=== PATIENT | female | born 1960 | race Caucasian/White ===

== ENCOUNTER 2017-07-17 00:30 | Emergency (ER) | payer SELFPAY ==
[2017-07-17 01:48] VITALS: BP 139/74
[2017-07-17] MEDS ORDERED: MOTRIN ONE (01:54)
[2017-07-17] MEDS ORDERED: MOTRIN PO ONE (01:58)
--- NOTE | 2017-07-17 02:32 | XRay Report ---
FINAL REPORT PROCEDURE: XR HAND BILAT 2V TECHNIQUE: LEFT hand radiographs, AP, lateral, and oblique views. CPT 45136-CC HISTORY: bilateral hand pain. Pts. hands started hurting at work after working in the cold. Hand pain feels like a "toothache" when walking home from work in the cold. Pt. states that had same hand pain a month ago as well with no known injury. COMPARISON: No prior studies are available for comparison. FINDINGS: Fracture (s) and/or Dislocation(s): None . Alignment: Normal . Joint space(s): Normal . Soft tissues: Normal . Bone mineralization: Normal . Foreign bodies: None . IMPRESSION: Normal Examination .
--- NOTE | 2017-07-17 03:28 | Emergency Department Report ---
ED Extremity Problem HPI - General Chief complaint: Extremity Injury, Upper Stated complaint: BILATERAL HAND PAIN Time Seen by Provider: 07/17/17 03:21 Source: patient Mode of arrival: Ambulatory Limitations: No Limitations - History of Present Illness Initial comments: 57-year-old female past medical history none presents with complaint of bilateral hand and fingertip pain. 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 Patient states that while at work today after exposure to cold she felt onset of pain in both of her hands and fingertips. States she may have had some slight bluish discoloration of fingertips which immediately resolved after warming her fingers. Patient states lasted for a few minutes. She denies any direct trauma to hands denies any loss of sensation. States the episode lasted for a few minutes. Denies fevers or chills. Denies any direct trauma hands. MD Complaint: extremity pain -: This afternoon Location: left, right History of Same: No Radiation: none Severity scale (0 -10): 6 Quality: aching Improves with: other (warming) - Related Data Previous Rx's Medication Instructions Recorded Last Taken Type Ibuprofen [Motrin] 600 mg PO Q8H PRN #30 tablet 07/17/17 Unknown Rx Allergies Allergy/AdvReac Type Severity Reaction Status Date / Time No Known Allergies Allergy Verified 07/17/17 01:55 ED Review of Systems ROS: Stated complaint: BILATERAL HAND PAIN Other details as noted in HPI Constitutional: denies: chills, fever Eyes: denies: eye pain, eye discharge, vision change ENT: denies: ear pain, throat pain Respiratory: denies: cough, shortness of breath, wheezing Cardiovascular: denies: chest pain, palpitations Endocrine: no symptoms reported Gastrointestinal: denies: abdominal pain, nausea, diarrhea Genitourinary: denies: urgency, dysuria, discharge Musculoskeletal: denies: back pain, joint swelling, arthralgia Skin: denies: rash, lesions Neurological: denies: headache, weakness, paresthesias Psychiatric: denies: anxiety, depression Hematological/Lymphatic: denies: easy bleeding, easy bruising ED Past Medical Hx - Past Medical History Previous Medical History?: No - Surgical History Additional Surgical History: X2. - Social History Smoking Status: Never Smoker Substance Use Type: None - Medications Home Medications: Home Medications Medication Instructions Recorded Confirmed Last Taken Type Ibuprofen [Motrin] 600 mg PO Q8H PRN #30 tablet 07/17/17 Unknown Rx ED Physical Exam - General Limitations: No Limitations General appearance: alert, in no apparent distress - Head Head exam: Present: atraumatic, normocephalic - Eye Eye exam: Present: normal appearance, PERRL, EOMI - ENT ENT exam: Present: mucous membranes moist - Neck Neck exam: Present: normal inspection - Respiratory Respiratory exam: Present: normal lung sounds bilaterally. Absent: respiratory distress - Cardiovascular Cardiovascular Exam: Present: regular rate, normal rhythm. Absent: systolic murmur, diastolic murmur, rubs, gallop - GI/Abdominal GI/Abdominal exam: Present: soft, normal bowel sounds - Extremities Exam Extremities exam: Present: normal inspection, full ROM (range of motion PIPs and MCPs DIPs fully intact all fingers, wrist flexion and extension intact bilaterally), normal capillary refill (distal capillary refill less than one second all fingers. Distal radial brachial and ulnar pulses strong to palpation bilaterally) - Back Exam Back exam: Present: normal inspection - Neurological Exam Neurological exam: Present: alert, oriented X3, CN II-XII intact, normal gait - Psychiatric Psychiatric exam: Present: normal affect, normal mood - Skin Skin exam: Present: warm, dry, intact, normal color. Absent: rash ED Course Vital Signs 07/17/17 01:39 Temperature 97.8 F Pulse Rate 64 Respiratory 18 Rate Blood Pressure 139/74 O2 Sat by Pulse 100 Oximetry ED Medical Decision Making - Medical Decision Making A/P: Raynauds phenomenon hands 1-patient feels significantly better with rewarming and NSAIDs, pain currently 0 out of 10 2-I educated patient on signs and symptoms of her nods and advised her to avoid cold triggers 3-follow-up with primary care doctor 4-bilateral hands range of motion all fingers intact at PIP and DIPs MCPs, capillary refill less than one second both hands, range of motion at wrist bilaterally intact. X-rays unremarkable. Sensation and proprioception intact both hands and fingers. Critical care attestation.: If time is entered above; I have spent that time in minutes in the direct care of this critically ill patient, excluding procedure time. ED Disposition Clinical Impression: Raynauds phenomenon Qualifiers: Raynaud?s-associated gangrene presence: without gangrene Qualified Code(s): I73.00 - Raynaud's syndrome without gangrene Disposition: TO HOME OR SELFCARE Is pt being admited?: No Does the pt Need Aspirin: No Condition: Stable Instructions: Raynaud Disease (ED) Prescriptions: Ibuprofen [Motrin] 600 mg PO Q8H PRN #30 tablet PRN Reason: Pain Referrals: AFUA GROVE MD [Primary Care Provider] - 3-5 Days [facility] [Outside] - 3-5 Days [facility] [Outside] - 3-5 Days TIARA REYNA MD [Staff Physician] - 3-5 Days Forms: Accompanied Note, Work/School Release Form(ED) Time of Disposition: 03:48
== END 2017-07-17 03:54 | disposition home or self-care (01) ==
LOC: ED 00:30
DX: I73.00 Raynaud's syndrome without gangrene (principal)
CPT/HCPCS: 99283

== ENCOUNTER 2017-07-29 06:15 | Emergency (ER) | payer SELFPAY ==
--- NOTE | 2017-07-29 11:39 | Emergency Department Report ---
- General Chief Complaint: Upper Respiratory Infection Stated Complaint: COLD SX Time Seen by Provider: 07/29/17 10:58 Source: patient Mode of arrival: Ambulatory Limitations: No Limitations - History of Present Illness Initial Comments: 57-year-old female past medical history none presents with complaint of one week of sore throat cough and runny nose. Patient denies chest pain palpitations shortness of breath or chest pain bodyaches dysuria hematuria increased urinary frequency abdominal pain or shortness of breath at rest. States she has had some sick contacts with similar symptoms lately. Patient states she has been in the hospital frequently this week to visit a sick family member. Patient denies being a smoker. Patient is awake alert and oriented 3 nontoxic-appearing fully lucid. States she has not been taking any medicines for her symptoms. States her throat is also slightly sore. Speaking in full sentences no trismus noted no drooling MD Complaint: cough, sore throat, nasal congestion Onset/Timin -: week(s) Severity: moderate Consistency: intermittent Improves With: nothing Context: sick contacts Associated Symptoms: rhinorrhea, nasal congestion, sore throat, cough - Related Data Previous Rx's Medication Instructions Recorded Last Taken Type Ibuprofen [Motrin] 600 mg PO Q8H PRN #30 tablet 07/17/17 Unknown Rx Albuterol Sulfate [Ventolin HFA] 2 puff IH Q4H PRN #1 hfa.aer.ad 07/29/17 Unknown Rx Azithromycin [Zithromax Z-MAYTE] 250 mg PO QDAY #1 pack 07/29/17 Unknown Rx Benzonatate [Tessalon Perles] 100 mg PO Q8HR PRN #30 capsule 07/29/17 Unknown Rx Dextromethorphan/Benzocaine 1 each PO Q4H PRN #1 box 07/29/17 Unknown Rx [Cepacol Sorethroat-Cough Carter] Phenylephrine/Dm/Acetaminop/GG 10 ml PO Q6H PRN #1 liquid 07/29/17 Unknown Rx [Mucinex Aseo-Qae-Yfrdtyuuhp Lq] Allergies Allergy/AdvReac Type Severity Reaction Status Date / Time No Known Allergies Allergy Verified 07/17/17 01:55 ED Review of Systems ROS: Stated complaint: COLD SX Other details as noted in HPI Constitutional: denies: chills, fever Eyes: denies: eye pain, eye discharge, vision change ENT: congestion. denies: ear pain, throat pain Respiratory: cough. denies: shortness of breath, wheezing Cardiovascular: denies: chest pain, palpitations Endocrine: no symptoms reported Gastrointestinal: denies: abdominal pain, nausea, diarrhea Genitourinary: denies: urgency, dysuria, discharge Musculoskeletal: denies: back pain, joint swelling, arthralgia Skin: denies: rash, lesions Neurological: denies: headache, weakness, paresthesias Psychiatric: denies: anxiety, depression Hematological/Lymphatic: denies: easy bleeding, easy bruising ED Past Medical Hx - Past Medical History Previous Medical History?: No - Surgical History Past Surgical History?: No Additional Surgical History: X2. - Social History Smoking Status: Former Smoker Substance Use Type: None - Medications Home Medications: Home Medications Medication Instructions Recorded Confirmed Last Taken Type Ibuprofen [Motrin] 600 mg PO Q8H PRN #30 tablet 07/17/17 Unknown Rx Albuterol Sulfate [Ventolin HFA] 2 puff IH Q4H PRN #1 hfa.aer.ad 07/29/17 Unknown Rx Azithromycin [Zithromax Z-MAYTE] 250 mg PO QDAY #1 pack 07/29/17 Unknown Rx Benzonatate [Tessalon Perles] 100 mg PO Q8HR PRN #30 capsule 07/29/17 Unknown Rx Dextromethorphan/Benzocaine 1 each PO Q4H PRN #1 box 07/29/17 Unknown Rx [Cepacol Sorethroat-Cough Carter] Phenylephrine/Dm/Acetaminop/GG 10 ml PO Q6H PRN #1 liquid 07/29/17 Unknown Rx [Mucinex Vial-Imr-Hrflifpwfs Lq] ED Physical Exam - General Limitations: No Limitations General appearance: alert, in no apparent distress - Head Head exam: Present: atraumatic, normocephalic - Eye Eye exam: Present: normal appearance, PERRL, EOMI - ENT ENT exam: Present: normal exam (no AUTOM[employer]S [employer]OR, no tonsillar exudates or tonsillar erythema, no clinical signs of otitis), mucous membranes moist - Neck Neck exam: Present: normal inspection - Respiratory Respiratory exam: Present: normal lung sounds bilaterally (slightly decreased breath sounds bilaterally no wheezing no rhonchi). Absent: respiratory distress - Cardiovascular Cardiovascular Exam: Present: regular rate, normal rhythm. Absent: systolic murmur, diastolic murmur, rubs, gallop - GI/Abdominal GI/Abdominal exam: Present: soft, normal bowel sounds - Extremities Exam Extremities exam: Present: normal inspection - Back Exam Back exam: Present: normal inspection - Neurological Exam Neurological exam: Present: alert, oriented X3 - Psychiatric Psychiatric exam: Present: normal affect, normal mood - Skin Skin exam: Present: warm, dry, intact, normal color. Absent: rash ED Course Vital Signs 07/29/17 07/29/17 06:53 11:56 Temperature 98.1 F Pulse Rate 72 Pulse Rate [ 79 Posterior Bilateral Throughout] Respiratory 16 Rate Respiratory 18 Rate [Posterior Bilateral Throughout] Blood Pressure 112/70 O2 Sat by Pulse 99 Oximetry ED Medical Decision Making - Medical Decision Making A/P: Acute bronchitis 1-symptomatic treatment 2-flu and strep swab is negative, chest x-ray unremarkable 3-as patient has had multiple sick contacts and has spent some time in a hospital setting this week visiting sick family members will cover her empirically with azithromycin 4-follow-up primary care doctor, vital signs stable before discharge Critical care attestation.: If time is entered above; I have spent that time in minutes in the direct care of this critically ill patient, excluding procedure time. ED Disposition Clinical Impression: Acute bronchitis Qualifiers: Bronchitis organism: unspecified organism Qualified Code(s): J20.9 - Acute bronchitis, unspecified Disposition: DC-01 TO HOME OR SELFCARE Is pt being admited?: No Does the pt Need Aspirin: No Condition: Stable Instructions: Acute Bronchitis (ED), Reactive Airways Disease (ED) Prescriptions: Albuterol Sulfate [Ventolin HFA] 2 puff IH Q4H PRN #1 hfa.aer.ad PRN Reason: Cough Azithromycin [Zithromax Z-MAYTE] 250 mg PO QDAY #1 pack Benzonatate [Tessalon Perles] 100 mg PO Q8HR PRN #30 capsule PRN Reason: Cough Dextromethorphan/Benzocaine [Cepacol Sorethroat-Cough Carter] 1 each PO Q4H PRN #1 box PRN Reason: Cough Phenylephrine/Dm/Acetaminop/GG [Mucinex Qbeu-Seq-Zzvqgsbvcw Lq] 10 ml PO Q6H PRN #1 liquid PRN Reason: Cough Referrals: [facility] [Outside] - 3-5 Days [facility] [Outside] - 3-5 Days Time of Disposition: 12:13
[2017-07-29] MEDS ORDERED: DUONEB *Not for PRN Use IH ONE (11:50)
[2017-07-29] MEDS ORDERED: GUAIFENESIN DM SYRUP PO ONE (11:51)
[2017-07-29] MEDS ORDERED: TYLENOL PO ONE (11:51)
[2017-07-29 12:55] VITALS: BP 100/50
--- NOTE | 2017-07-29 13:06 | XRay Report ---
FINAL REPORT EXAM: XR CHEST ROUTINE 2V HISTORY: productive cough TECHNIQUE: 2 view examination of the chest PRIORS: None FINDINGS: Atherosclerotic change in the thoracic aorta. Degenerative change in the thoracic spine. There is no visible pulmonary consolidation, pleural effusion, or pneumothorax. Cardiac silhouette size is normal without vascular congestion. IMPRESSION: No evidence of acute cardiopulmonary disease
== END 2017-07-29 14:11 | disposition home or self-care (01) ==
LOC: ED 06:15
DX: J20.9 Acute bronchitis, unspecified (principal); Z87.891 Personal history of nicotine dependence
CPT/HCPCS: 71046; 87116; 87400; 87430; 94640; 99283

== ENCOUNTER 2017-12-04 05:22 | Emergency (ER) | payer OTHER ==
--- NOTE | 2017-12-04 07:36 | Emergency Department Report ---
ED Upper Extremity Inj HPI - General Chief Complaint: Extremity Injury, Upper Stated Complaint: RIGHT HAND FINGER HURT Time Seen by Provider: 12/04/17 07:23 Source: patient Mode of arrival: Ambulatory Limitations: No Limitations - History of Present Illness Initial Comments: This is a 57-year-old -[place] female who presents with pain and swelling to right fifth digit. Patient reports injuring her finger while lifting a box at work Wednesday morning around 0130. She wrapped finger with a Band-Aid and wore a glove and continued to work Wednesday morning. She went home and went to sleep and woke up a few hours later to return to work Wednesday night and noticed increased swelling and severe pain. She soaked finger in peroxide and rewrapped with multiple Band-Aids and went to work. Reports pain is 10 out of 10 with movement. Pain is improved with immobility. Admits to pain and swelling. Denies numbness or tingling, deformity, and erythema. MD Complaint: Injury to:: right (fifth digit) -: days(s) (one day) Other Extremity Injury: Fingers: Right (fifth digit) Other Injuries: none Handedness: right Place: work Severity scale (0 -10): 10 Improves With: immobilization Worsens With: movement of extremity Associated Symptoms: denies other symptoms Treatments Prior to Arrival: splint - Related Data Previous Rx's Medication Instructions Recorded Last Taken Type Ibuprofen [Motrin] 600 mg PO Q8H PRN #30 tablet 07/17/17 Unknown Rx Albuterol Sulfate [Ventolin HFA] 2 puff IH Q4H PRN #1 hfa.aer.ad 07/29/17 Unknown Rx Azithromycin [Zithromax Z-MAYTE] 250 mg PO QDAY #1 pack 07/29/17 Unknown Rx Benzonatate [Tessalon Perles] 100 mg PO Q8HR PRN #30 capsule 07/29/17 Unknown Rx Dextromethorphan/Benzocaine 1 each PO Q4H PRN #1 box 07/29/17 Unknown Rx [Cepacol Sorethroat-Cough Carter] Phenylephrine/Dm/Acetaminop/GG 10 ml PO Q6H PRN #1 liquid 07/29/17 Unknown Rx [Mucinex Efys-Mhv-Uwjbrdjkod Lq] Naproxen [Naprosyn] 500 mg PO TID PRN #20 tablet 12/04/17 Unknown Rx Allergies Allergy/AdvReac Type Severity Reaction Status Date / Time No Known Allergies Allergy Verified 07/17/17 01:55 ED Review of Systems ROS: Stated complaint: RIGHT HAND FINGER HURT Other details as noted in HPI Constitutional: denies: chills, fever Respiratory: denies: cough, shortness of breath, wheezing Cardiovascular: denies: chest pain, palpitations Gastrointestinal: denies: abdominal pain, nausea, diarrhea Musculoskeletal: arthralgia (pain to the fifth digit on right hand). denies: back pain, joint swelling Skin: denies: rash, lesions Neurological: denies: headache, weakness, numbness, paresthesias Psychiatric: denies: anxiety, depression ED Past Medical Hx - Past Medical History Previous Medical History?: No - Surgical History Past Surgical History?: Yes Additional Surgical History: X2. - Social History Smoking Status: Never Smoker Substance Use Type: None - Medications Home Medications: Home Medications Medication Instructions Recorded Confirmed Last Taken Type Ibuprofen [Motrin] 600 mg PO Q8H PRN #30 tablet 07/17/17 Unknown Rx Albuterol Sulfate [Ventolin HFA] 2 puff IH Q4H PRN #1 hfa.aer.ad 07/29/17 Unknown Rx Azithromycin [Zithromax Z-MAYTE] 250 mg PO QDAY #1 pack 07/29/17 Unknown Rx Benzonatate [Tessalon Perles] 100 mg PO Q8HR PRN #30 capsule 07/29/17 Unknown Rx Dextromethorphan/Benzocaine 1 each PO Q4H PRN #1 box 07/29/17 Unknown Rx [Cepacol Sorethroat-Cough Carter] Phenylephrine/Dm/Acetaminop/GG 10 ml PO Q6H PRN #1 liquid 07/29/17 Unknown Rx [Mucinex Lwvg-Mac-Lpfhxwxvpc Lq] Naproxen [Naprosyn] 500 mg PO TID PRN #20 tablet 12/04/17 Unknown Rx ED Physical Exam - General Limitations: No Limitations General appearance: alert, in no apparent distress - Respiratory Respiratory exam: Present: normal lung sounds bilaterally. Absent: respiratory distress, wheezes, rales, rhonchi, stridor, accessory muscle use - Cardiovascular Cardiovascular Exam: Present: regular rate, normal rhythm, normal heart sounds. Absent: systolic murmur, diastolic murmur, rubs, gallop - GI/Abdominal GI/Abdominal exam: Present: soft, normal bowel sounds - Extremities Exam Extremities exam: Present: normal inspection, full ROM, normal capillary refill. Absent: pedal edema, joint swelling, calf tenderness - Expanded Upper Extremity Exam Right Shoulder Exam: Present: normal inspection, full ROM Upper Arm exam: Present: normal inspection, full ROM Elbow exam: Present: normal inspection, full ROM Forearm Wrist exam: Present: normal inspection, full ROM Hand Wrist exam: Present: tenderness (proximal fifth PIP joint), swelling. Absent: full ROM (30 active range of motion to the fifth digit of right hand, 60 passive range of motion 2/2 pain), abrasion, laceration, ecchymosis, deformity Neuro motor exam: Present: wrist extension intact, thumb opposition intact, fingers 2-5 abduction intact Neurosensory exam: Present: radial nerve intact, median nerve intact Vascular: Present: radial pulse (+2) - Neurological Exam Neurological exam: Present: alert, oriented X3, normal gait - Psychiatric Psychiatric exam: Present: normal affect, normal mood - Skin Skin exam: Present: warm, dry, intact, normal color. Absent: rash ED Course Vital Signs 12/04/17 06:25 Temperature 98.6 F Pulse Rate 69 Respiratory 18 Rate Blood Pressure 116/68 O2 Sat by Pulse 100 Oximetry ED Medical Decision Making - Radiology Data Radiology results: report reviewed XR right hand: Nonspecific fusiform swelling around the fifth finger. No evidence of fracture or osteomyelitis. Minimal arthritic changes involving several of the interphalangeal joints of the fingers. - Medical Decision Making This is a 57-year-old female who presents with right fifth digit pain from a work injury yesterday morning. Patient was examined by me. Vital stable. Patient is nontoxic appearing. Obtained x-ray of the right hand and read by our radiologist. XR right hand: Nonspecific fusiform swelling around the fifth finger. No evidence of fracture or osteomyelitis. Minimal arthritic changes involving several of the interphalangeal joints of the fingers. Patient informed of results. Start naproxen 500 mg by mouth 3 times a day. Plan discussed with patient to discharge home and treat outpatient. She agrees with ER plan. Patient discharged home in stable condition. Follow up with PCP in 2-3 days. Critical care attestation.: If time is entered above; I have spent that time in minutes in the direct care of this critically ill patient, excluding procedure time. ED Disposition Clinical Impression: Osteoarthritis Qualifiers: Osteoarthritis location: hand Osteoarthritis type: primary Laterality: right Qualified Code(s): M19.041 - Primary osteoarthritis, right hand Disposition: DC- TO HOME OR SELFCARE Is pt being admited?: No Does the pt Need Aspirin: No Condition: Stable Instructions: Osteoarthritis (ED), Self-Care Measures with a Chronic Disease ( ED) Additional Instructions: Rest Use ice or heat on affected area for 20 minutes and off for 2 hours. Take pain medication as needed for pain. Follow up with Primary Care Provider in 2-3 days. Prescriptions: Naproxen [Naprosyn] 500 mg PO TID PRN #20 tablet PRN Reason: Pain Referrals: [facility] [Outside] - 3-5 Days [facility] [Outside] - 3-5 Days [facility] [Outside] - 3-5 Days Forms: Work/School Release Form(ED) Time of Disposition: 08:24 Print Language: [place]
[2017-12-04 08:34] VITALS: BP 133/72
--- NOTE | 2017-12-04 09:00 | XRay Report ---
FINAL REPORT EXAM: XR HAND 3+V RT HISTORY: pain and swelling R 5th digit TECHNIQUE: Three views of the right hand were obtained. FINDINGS: There is a fusiform soft swelling around the 5th finger. There is no evidence of fracture or dislocation. There is mild arthritic changes of several of the interphalangeal joints of the fingers. The metacarpophalangeal joints appear intact. The wrist joint is not show any acute changes. IMPRESSION: Nonspecific fusiform soft swelling around the 5th finger. No evidence of fracture or osteomyelitis. Minimal arthritic changes involving several of the interphalangeal joints of the fingers.
== END 2017-12-04 08:39 | disposition home or self-care (01) ==
LOC: ED 05:22
DX: M19.041 Primary osteoarthritis, right hand (principal); T75.00XA Unspecified effects of lightning, initial encounter; Y93.89 Activity, other specified; Y99.8 Other external cause status; Y92.89 Other specified places as the place of occurrence of the external cause

== ENCOUNTER 2019-05-25 21:00 | Emergency (ER) | payer SELFPAY ==
--- NOTE | 2019-05-25 21:48 | Emergency Department Report ---
Blank Doc - Documentation Documentation: 59-year-old female that presents with headache s/p hitting head against the ta ble. Denies any LOC. Stated headache is worsening. This initial assessment/diagnostic orders/clinical plan/treatment(s) is/are subject to change based on patient's health status, clinical progression and re- assessment by fellow clinical providers in the ED. Further treatment and workup at subsequent clinical providers discretion. Patient/guardians urged not to elope from the ED as their condition may be serious if not clinically assessed and managed. Initial orders include: 1- Patient sent to [facility] for further evaluation and treatment 2- CT head
[2019-05-25] MEDS ORDERED: diphenhydrAMINE 25 MG/10 ML ORAL LIQUID PO ONE (22:24)
[2019-05-25] MEDS ORDERED: methylPREDNISolone Sod Succinate 125 MG/2 ML INJ IM ONE (22:24)
[2019-05-25] MEDS ORDERED: BUTALB/ACETAMINOPHEN/CAFFEINE TAB PO ONE (22:24)
[2019-05-25] MEDS ORDERED: METOCLOPRAMIDE 10 MG TAB PO ONE (22:25)
--- NOTE | 2019-05-25 22:27 | Emergency Department Report ---
ED General Adult HPI - General Chief complaint: Headache Stated complaint: HEADACHES Time Seen by Provider: 05/25/19 21:47 Source: patient Mode of arrival: Ambulatory Limitations: No Limitations - History of Present Illness Initial comments: Patient presents to the emergency department with a chief complaint of a headache for the last 2-3 weeks. Patient states she hit the back of her head on the table at work and has had headaches since that time. Patient describes the headaches as diffuse in nature and throbbing and made worse by loud sounds or b right lights. Patient denies this being the worst headache of her life but she states it has been the longest headache of her life. Patient denies chest pain, shortness breath, or abdominal pain. -: Sudden Location: head Radiation: non-radiation Severity scale (0 -10): 8 Quality: other (throbbing) Consistency: constant Improves with: none Worsens with: other (bright lights) Associated Symptoms: denies other symptoms Treatments Prior to Arrival: none - Related Data Previous Rx's Medication Instructions Recorded Last Taken Type Ibuprofen [Motrin] 600 mg PO Q8H PRN #30 tablet 07/17/17 Unknown Rx Albuterol Sulfate [Ventolin HFA] 2 puff IH Q4H PRN #1 hfa.aer.ad 07/29/17 Unknown Rx Azithromycin [Zithromax Z-MAYTE] 250 mg PO QDAY #1 pack 07/29/17 Unknown Rx Benzonatate [Tessalon Perles] 100 mg PO Q8HR PRN #30 capsule 07/29/17 Unknown Rx Dextromethorphan/Benzocaine 1 each PO Q4H PRN #1 box 07/29/17 Unknown Rx [Cepacol Sorethroat-Cough Carter] Phenylephrine/Dm/Acetaminop/GG 10 ml PO Q6H PRN #1 liquid 07/29/17 Unknown Rx [Mucinex Olly-Opu-Rhclhbktiy Lq] Naproxen [Naprosyn] 500 mg PO TID PRN #20 tablet 12/04/17 Unknown Rx Butalb/Acetamin/Caff 50-325-40 1 tab PO Q6HR PRN #24 tab 05/25/19 Unknown Rx [Fioricet] Allergies Allergy/AdvReac Type Severity Reaction Status Date / Time No Known Allergies Allergy Verified 07/17/17 01:55 ED Review of Systems ROS: Stated complaint: HEADACHES Other details as noted in HPI Comment: All other systems reviewed and negative Constitutional: denies: chills, fever Eyes: denies: eye pain, eye discharge, vision change ENT: denies: ear pain, throat pain Respiratory: denies: cough, shortness of breath, wheezing Cardiovascular: denies: chest pain, palpitations Endocrine: no symptoms reported Gastrointestinal: denies: abdominal pain, nausea, diarrhea Genitourinary: denies: urgency, dysuria, discharge Musculoskeletal: denies: back pain, joint swelling, arthralgia Skin: denies: rash, lesions Neurological: headache. denies: weakness, paresthesias Psychiatric: denies: anxiety, depression Hematological/Lymphatic: denies: easy bleeding, easy bruising ED Past Medical Hx - Past Medical History Previous Medical History?: No - Surgical History Past Surgical History?: Yes Additional Surgical History: X2. - Social History Smoking Status: Never Smoker Substance Use Type: None - Medications Home Medications: Home Medications Medication Instructions Recorded Confirmed Last Taken Type Ibuprofen [Motrin] 600 mg PO Q8H PRN #30 tablet 07/17/17 Unknown Rx Albuterol Sulfate [Ventolin HFA] 2 puff IH Q4H PRN #1 hfa.aer.ad 07/29/17 Unknown Rx Azithromycin [Zithromax Z-MAYTE] 250 mg PO QDAY #1 pack 07/29/17 Unknown Rx Benzonatate [Tessalon Perles] 100 mg PO Q8HR PRN #30 capsule 07/29/17 Unknown Rx Dextromethorphan/Benzocaine 1 each PO Q4H PRN #1 box 07/29/17 Unknown Rx [Cepacol Sorethroat-Cough Carter] Phenylephrine/Dm/Acetaminop/GG 10 ml PO Q6H PRN #1 liquid 07/29/17 Unknown Rx [Mucinex Akkf-Pie-Pimphrbdvx Lq] Naproxen [Naprosyn] 500 mg PO TID PRN #20 tablet 12/04/17 Unknown Rx Butalb/Acetamin/Caff 50-325-40 1 tab PO Q6HR PRN #24 tab 05/25/19 Unknown Rx [Fioricet] ED Physical Exam - General Limitations: No Limitations General appearance: alert, in no apparent distress - Head Head exam: Present: atraumatic, normocephalic - Eye Eye exam: Present: normal appearance, PERRL, EOMI - ENT ENT exam: Present: mucous membranes moist - Neck Neck exam: Present: normal inspection - Respiratory Respiratory exam: Present: normal lung sounds bilaterally. Absent: respiratory distress, wheezes - Cardiovascular Cardiovascular Exam: Present: regular rate, normal rhythm. Absent: systolic mu rmur, diastolic murmur, rubs, gallop - GI/Abdominal GI/Abdominal exam: Present: soft, normal bowel sounds. Absent: distended, tenderness - Extremities Exam Extremities exam: Present: normal inspection - Back Exam Back exam: Present: normal inspection - Neurological Exam Neurological exam: Present: alert, oriented X3, CN II-XII intact. Absent: motor sensory deficit - Psychiatric Psychiatric exam: Present: normal affect, normal mood - Skin Skin exam: Present: warm, dry, intact, normal color. Absent: rash ED Course Vital Signs 05/25/19 05/25/19 21:19 23:03 Temperature 97.6 F Pulse Rate 74 70 Respiratory 18 14 Rate Blood Pressure 121/68 150/83 [Right] O2 Sat by Pulse 100 98 Oximetry ED Medical Decision Making - Radiology Data Radiology results: report reviewed - Medical Decision Making Results discussed with pt SARMIENTO improved with [facility] Critical care attestation.: If time is entered above; I have spent that time in minutes in the direct care of this critically ill patient, excluding procedure time. ED Disposition Clinical Impression: Concussion Disposition: DC-01 TO HOME OR SELFCARE Is pt being admited?: No Does the pt Need Aspirin: No Condition: Stable Instructions: Concussion (ED), Minor Head Injury (ED) Additional Instructions: return if worse Referrals: [facility] [Provider Group] - 3-5 Days [facility] [Provider Group] - 3-5 Days Time of Disposition: 23:42
[2019-05-25 23:04] VITALS: BP 150/83
--- NOTE | 2019-05-25 23:13 | Cat Scan Report ---
CT head/brain wo con INDICATION / CLINICAL INFORMATION: MAIN: headache S/P FALL. TECHNIQUE: Axial CT imaging of the brain was obtained without contrast. Coronal and sagittal reformatted imaging obtained and reviewed. All CT scans at this location are performed using CT dose reduction for ALAR A by means of automated exposure control. COMPARISON: None available. FINDINGS: No intracranial hemorrhage, mass, or midline shift noted. No extra-axial fluid collection or suggesti on of acute territorial infarct. Ventricular system and basilar cisterns are within normal limits. Visualized paranasal sinuses and mastoid air cells are well aerated and clear. No calvarial fracture noted. IMPRESSION: 1. Negative noncontrast CT scan. Signer Name: Bree Jorgensen MD Signed: 05/25/2019 11:09 PM Workstation Name: [id number]
== END 2019-05-25 23:50 | disposition home or self-care (01) ==
LOC: ED 21:00
DX: S06.0X0A Concussion without loss of consciousness, initial encounter (principal); W22.8XXA Striking against or struck by other objects, initial encounter; Y93.89 Activity, other specified; Y92.69 Other specified industrial and construction area as the place of occurrence of the external cause; Y99.8 Other external cause status
CPT/HCPCS: 70450; 96372; 99283; J2930; Q0163